=== PATIENT | female | born 1940 | race Two or more races ===

== ENCOUNTER 2016-07-04 08:33 | Day surgery (SDC) | payer MEDICARE ==
[2016-07-02 14:43] VITALS: BMI 39.6
--- NOTE | 2016-07-04 00:26 | P.GSHP ---
History of Present Illness H&P Date: 07/03/16 CHIEF COMPLAINT: Cholecystitis and right lower quadrant pain. HISTORY OF PRESENT ILLNESS: The patient is a 76-year-old female who presents with history of symptomatic gallstones including right lower quadrant abdominal pain. She underwent diagnostic studies for her gallbladder. She also reports history of chronic right lower quadrant pain. She has a family history of chronic appendicitis and appendiceal cancer. Now she presents for surgical intervention. PAST MEDICAL HISTORY: Please see list PAST SURGICAL HISTORY: Please see list MEDICATIONS: Please see list ALLERGIES: Denies. SOCIAL HISTORY: No illicit drug use or recent tobacco use FAMILY HISTORY: Pertinent for gallbladder disease REVIEW OF ORGAN SYSTEMS: CONSTITUTIONAL: No reports of fevers or chills. HEENT: Denies any troubles with the vision or hearing. Has history of tooth abscess, ENDOCRINE: Has diabetes. RESPIRATORY: No recent pneumonias. CARDIOVASCULAR: Denies chest pain or palpitations GI: No blood in stools or constipation. MUSCULOSKELETAL: Has occasional joint pain including back pain. NEURO: No seizure disorders or headaches. No recent stroke. PSYCH: No depression or suicidal ideation. HEMATOLOGIC: No personal or family history of DVTs or pulmonary emboli. PHYSICAL EXAM: VITAL SIGNS: Afebrile vital signs stable GENERAL: Well-developed pleasant in no acute distress. HEENT: No scleral icterus. Extraocular movements grossly intact. Moist buccal mucosa. NECK: Supple without lymphadenopathy. CHEST: Unlabored respirations. Equal bilateral excursions. CARDIOVASCULAR: Regular rate regular rhythm rhythm. Distal 2+ pulses. ABDOMEN: Soft, nondistended. Tender along the epigastrium and right upper quadrant. MUSCULOSKELETAL: No clubbing, cyanosis, or edema. NEURO: Cranial nerves II to XII within normal limits. No focal or lateralizing signs. PSYCH: Alert and oriented to person, place and time. ASSESSMENT: 1. Right lower quadrant pain. 2. Symptomatic gallstones. PLAN: 1. Will need a laparoscopic cholecystectomy possible open including appendectomy. Benefits and risks were described. 2. Heparin for DVT prophylaxis 5000 units. 3. Antibiotic prophylaxis. Past Medical History Past Medical History: Cancer, Diabetes Mellitus, Hearing Disorder / Deafness, Hyperlipidemia, Hypertension, Osteoarthritis (OA) Additional Past Medical History / Comment(s): UTERINE, KIDNEY, RT BREAST CA. TINNITUS NATTY. GALLSTONES. OVERACTIVE BLADDER. <DO NOT USE RIGHT ARM> History of Any Multi-Drug Resistant Organisms: None Reported Past Surgical History: Breast Surgery, Hysterectomy Additional Past Surgical History / Comment(s): VARICOSE VEIN LASERED. EXC 1/2 RT KIDNEY. RT BREAST MASTECTOMY, W/ LYMPH NODE DISSECTION. COLONOSCOPY . Past Anesthesia/Blood Transfusion Reactions: No Reported Reaction Additional Past Anesthesia/Blood Transfusion Reaction / Comment(s): UNABLE TO USE RIGHT ARM. VERY HARD IV START. Past Psychological History: No Psychological Hx Reported Smoking Status: Never smoker Past Alcohol Use History: None Reported Past Drug Use History: None Reported - Past Family History Son(s) Family Medical History: Deep Vein Thrombosis (DVT) Medications and Allergies Home Medications Medication Instructions Recorded Confirmed Type Aspirin 81 mg PO DAILY 07/02/16 07/02/16 History Cholecalciferol [Vitamin D3] 1,000 unit PO BID 07/02/16 07/02/16 History Lisinopril [Zestril] 20 mg PO BID 07/02/16 07/02/16 History glipiZIDE [Glucotrol] 10 mg PO AC-BID 07/02/16 07/02/16 History metFORMIN HCL [Glucophage] 500 mg PO BID 07/02/16 07/02/16 History Allergies Allergy/AdvReac Type Severity Reaction Status Date / Time Iodinated Contrast Media - Allergy Anaphylaxis Verified 07/02/16 14:14 Oral and
[~2016-07-04 08:33] MED LIST: DEXAMETHASONE SOD PHOSPHATE 10 MG/ML 1 ML VIAL IV ONE; LACTATED RINGERS 1,000 ML IV SCH; MIDAZOLAM 2 MG/2 ML VIAL IV PRN; ONDANSETRON 4 MG/2 ML VIAL IVP ONE; SCOPOLAMINE 1.5MG/72HR PATCH TRANSDERM ONE; ceFAZolin 2 GM in SODIUM CHLORIDE 0.9% 100 ML IVPB ONE; metroNIDAZOLE-NS PMX 500 MG in SALINE 1 100ML.BAG IVPB ONE
[2016-07-04] MEDS ORDERED: LIDOCAINE 1% 20 ML VIAL (10MG/ML) FOR IV START INTRADERMA ONE (09:36)
[2016-07-04 09:47] LABS: Glucose,Whole Blood 116 mg/dL (75-99)
[2016-07-04] MEDS ORDERED: HEPARIN SODIUM,PORCINE 5,000 UNIT/ML 1 ML VIAL SQ ONE (09:52)
[2016-07-04 09:56] LABS: Basophils # (A) 0.1 k/uL (0-0.2); Basophils % (A) 1 %; CHCM 33.6; Eosinophils # (A) 0.4 k/uL (0-0.7); Eosinophils % (A) 4 %; HCT 46.2 % (34.0-46.0); HDW 2.36; HGB 15.2 gm/dL (11.4-16.0); Luc # (Auto) 0.16; Luc % (Auto) 2; Lymphocytes # (A) 2.3 k/uL (1.0-4.8); Lymphocytes % (A) 25 %; MCH 30.4 pg (25.0-35.0); MCHC 32.8 g/dL (31.0-37.0); MCV 92.5 fL (80.0-100.0); Mean Platelet Volume 8.1; Monocytes # (A) 0.5 k/uL (0-1.0); Monocytes % (A) 5 %; Neutrophils % (A) 64 %; RDW 13.1 % (11.5-15.5); WBC 9.5 k/uL (3.8-10.6); WBC (Perox) 9.54
[2016-07-04 10:10] LABS: ALT 29 U/L (9-52); AST 21 U/L (14-36); Alkaline Phosphatase 78 U/L (38-126); Anion Gap 12 mmol/L; Blood Urea Nitrogen 13 mg/dL (7-17); Calcium 9.6 mg/dL (8.4-10.2); Carbon Dioxide 26 mmol/L (22-30); Chloride 105 mmol/L (98-107); Glucose 123 mg/dL (74-99); Non-African American GFR(MDRD) >60 (>60 ml/min/1.73 sqM); Potassium 4.7 mmol/L (3.5-5.1); Sodium 143 mmol/L (137-145); Total Bilirubin 0.6 mg/dL (0.2-1.3); Total Protein 7.4 g/dL (6.3-8.2)
[2016-07-04] MEDS ORDERED: BUPIVACAIN-EPI 0.25%-1:200,000 30 ML VIAL SQ ONE ×2 (11:13)
[2016-07-04] MEDS ORDERED: fentaNYL (PF) 50 MCG/ML 2 ML AMP ONE (11:15)
[2016-07-04] MEDS ORDERED: ROCURONIUM BROMIDE 10 MG/ML 10 ML VIAL IV ONE (11:15)
[2016-07-04] MEDS ORDERED: NEOSTIGMINE 1 MG/ML 10 ML VIAL ONE (11:15)
[2016-07-04] MEDS ORDERED: LABETALOL 5 MG/ML VIAL MDV ONE (11:15)
[2016-07-04] MEDS ORDERED: METOPROLOL TARTRATE 5 MG/5 ML VIAL IVP ONE (11:15)
[2016-07-04] MEDS ORDERED: SODIUM CHLORIDE 0.9% 50 ML with ceFAZolin 2,000 MG IV ONE ×2 (11:15)
[2016-07-04] MEDS ORDERED: LIDOCAINE 1% INJ 10MG/ML (20 ML MDV) ONE (11:15)
[2016-07-04] MEDS ORDERED: ACETAMINOPHEN IV (For NPO) 1,000 MG/100 ML VIAL ONE (11:15)
[2016-07-04] MEDS ORDERED: MIDAZOLAM 2 MG/2 ML VIAL ONE (11:15)
[2016-07-04] MEDS ORDERED: PROPOFOL 10 MG/ML 20 ML VIAL IV ONE (11:15)
[2016-07-04] MEDS ORDERED: GLYCOPYRROLATE 0.2 MG/ML 2 ML VIAL ONE (11:15)
[2016-07-04] MEDS ORDERED: SUCCINYLCHOLINE CHLORIDE 100 MG/5 ML SYR IV ONE (11:15)
--- NOTE | 2016-07-04 12:31 | P.PCN ---
Date of Procedure: 07/04/16 Preoperative Diagnosis: Cholelithiasis, right lower quadrant abdominal pain, history of multiple abdominal operations including right nephrectomy Postoperative Diagnosis: Same, intra-abdominal. Toenail adhesions along right lower quadrant, periumbilical ventral hernia reducible 4 cm, absent appendix Procedure(s) Performed: Laparoscopic lysis of adhesions over 30 minutes, laparoscopic cholecystectomy Anesthesia: GETA, local (60) Surgeon: Felisha Barriga Estimated Blood Loss (ml): 5 Pathology: other (Gallbladder) Condition: stable Disposition: floor Operative Findings: Moderate adhesions along the right lower quadrant consistent with patient's pain , adhesions along the base of the cecum and terminal ileum without appendix consistent with prior appendectomy, ovary along the right identified, gallbladder with gallstones and thickened gallbladder wall, unremarkable liver surface, reducible ventral hernia periumbilical 4 cm Plan - Discharge Summary Discharge Medication List Aspirin 81 mg PO DAILY 07/02/16 [History] Cholecalciferol [Vitamin D3] 1,000 unit PO BID 07/02/16 [History] Lisinopril [Zestril] 20 mg PO BID 07/02/16 [History] glipiZIDE [Glucotrol] 10 mg PO AC-BID 07/02/16 [History] metFORMIN HCL [Glucophage] 500 mg PO BID 07/02/16 [History]
[2016-07-04] MEDS ORDERED: PROMETHAZINE 25 MG TAB PO PRN (12:37)
[2016-07-04] MEDS ORDERED: NALOXONE 0.4 MG/ML 1 ML VIAL IV PRN ×2 (12:37→15:45)
[2016-07-04 13:16] LABS: Glucose,Whole Blood 197 mg/dL (75-99)
[2016-07-04] MEDS: HYDROmorphone 1 MG/ML 1 ML SYRINGE IVP PRN ×2 (13:22→14:25)
[2016-07-04] MEDS ORDERED: ONDANSETRON 4 MG/2 ML VIAL IVP PRN (15:45)
--- NOTE | 2016-07-04 15:48 | P.PN ---
Progress Note - Text Patient has dizziness and uncontrolled hypertension. Overnight observation is advised.
[2016-07-04] MEDS ORDERED: LACTATED RINGERS 1,000 ML IV ONE (15:58)
[2016-07-04 17:33] LABS: Hemoglobin A1C 6.2 % (4.2-6.1)
[2016-07-04] MEDS: SODIUM CHLORIDE 0.9% 1,000 ML IV SCH (18:16)
[2016-07-04] MEDS: AMPICILLIN-SULBACTAM 3 GM in SODIUM CHLORIDE 0.9% 100 ML IVPB SCH ×2 (18:16→23:29)
[2016-07-04] MEDS: INSULIN LISPRO (humaLOG) 300 UNIT/3 ML VIAL SQ SCH (18:36)
[2016-07-04 18:41] LABS: Glucose,Whole Blood 177 mg/dL (75-99)
[2016-07-04] MEDS: HYDROcodone/APAP 5-325MG 1 EACH TAB PO PRN ×2 (19:26→23:34)
[2016-07-04] MEDS: glipiZIDE 10 MG TAB PO SCH ×3 (20:24→21:21)
[2016-07-04 20:47] LABS: Glucose,Whole Blood 180 mg/dL (75-99)
[2016-07-04] MEDS: metFORMIN 500 MG TAB PO SCH (21:20)
[2016-07-04] MEDS: LISINOPRIL 20 MG TAB PO SCH (21:50)
[2016-07-04] MEDS: CHOLECALCIFEROL 1,000 UNIT TAB PO SCH (21:50)
[2016-07-05] MEDS: INSULIN LISPRO (humaLOG) 300 UNIT/3 ML VIAL SQ SCH ×2 (00:22→06:24)
[2016-07-05 00:38] LABS: Glucose,Whole Blood 148 mg/dL (75-99)
[2016-07-05] MEDS: HYDROcodone/APAP 5-325MG 1 EACH TAB PO PRN (05:29)
[2016-07-05 06:24] LABS: Glucose,Whole Blood 86 mg/dL (75-99)
[2016-07-05 08:51] VITALS: BP 152/80; PULSE 66; RESP 16; TEMP 98.2
[2016-07-05] MEDS: metFORMIN 500 MG TAB PO SCH (08:53)
[2016-07-05] MEDS: SODIUM CHLORIDE 0.9% 1,000 ML IV SCH (08:53)
[2016-07-05] MEDS: LISINOPRIL 20 MG TAB PO SCH (08:53)
[2016-07-05] MEDS: glipiZIDE 10 MG TAB PO SCH (08:53)
[2016-07-05] MEDS: CHOLECALCIFEROL 1,000 UNIT TAB PO SCH (08:53)
[2016-07-05] MEDS: AMPICILLIN-SULBACTAM 3 GM in SODIUM CHLORIDE 0.9% 100 ML IVPB SCH (08:56)
[2016-07-05] MEDS ORDERED: ASPIRIN 81 MG CHEW PO SCH (09:00)
--- NOTE | 2016-07-05 10:12 | P.DS ---
Providers Date of admission: 07/04/2016 Expected date of discharge: 07/05/16 Attending physician: Felisha Barriga Primary care physician: Latasha Durham - Discharge Diagnosis(es) (1) Gallstones and inflammation of gallbladder without obstruction Current Visit: Yes Status: Acute (2) Peritoneal adhesions Current Visit: Yes Status: Acute (3) Right lower quadrant pain Current Visit: Yes Status: Acute (4) Diabetes type 2, controlled Current Visit: Yes Status: Acute (5) Difficult ventilator weaning Current Visit: Yes Status: Acute (6) Uncontrolled hypertension Current Visit: Yes Status: Acute (7) Oxygen desaturation Current Visit: Yes Status: Acute Hospital Course: The patient is status post laparoscopic cholecystectomy. She had difficulty with arousal postoperatively. Additionally her blood pressure was uncontrolled. She was admitted as a result of her difficulty of awakening after anesthesia as well as uncontrolled hypertension. Additionally for her oxygen desaturation, she was placed in the Center spirometer. She was resumed on her home medications. This morning, she feels more of herself. She tolerated diet. Blood sugars immediately after breakfast were 133. I reviewed with her blood sugar glucose monitoring including avoiding her medications in the morning if her blood sugars are under 150. She reports having hypoglycemic events at home with blood sugars in the 60s and 80s. Separately she reports discomfort along the left upper quadrant as to be expected as she had a over a 2 cm gallstone removed. Will need diabetic education and follow up with her primary care provider regarding adjustment of her medications. Separately, she reports having a tooth abscess for which additional antibiotics were given for her tooth abscess. Vital Signs Temp 98.2 F 07/05/16 07:00 Pulse 66 07/05/16 08:00 Resp 16 07/05/16 08:00 BP 152/80 07/05/16 07:00 Pulse Ox 93 L 07/05/16 07:00 Intake & Output 07/04/16 07/05/16 07/05/16 18:59 06:59 18:59 Intake Total 1050 600 Output Total 355 350 350 Balance 695 250 -350 Weight 95.254 kg 95.254 kg 95.254 kg Intake: IV 1050 600 Sodium Chloride 0.9% 1, 600 000 ml @ 75 mls/hr IV . [id number] [facility] Rx#:[id number] Output: Urine 350 350 350 Estimated Blood Loss 5 Other: Voiding Method Bedside Commode Bedside Commode # Voids 1 1 GENERAL: Well developed and in no acute distress. Pleasant. HEENT: No sclera icterus. Extraocular movements grossly intact. Moist buccal mucosa. Head is atraumatic, normocephalic. Hears conversational speech. No nasal drainage. NECK: Supple without lymphadenopathy. No JV distention. CHEST: Non-labored respirations and equal bilateral excursions. CARDIOVASCULAR: Regular rate and rhythm. Palpable 2+ radial pulses. ABDOMEN: Soft, Nondistended. Tenderness along the left upper quadrant post incisional. Laparoscopic sites clean dry and intact. MUSCULOSKELETAL: No clubbing, cyanosis or edema. NEUROLOGIC: No focal or lateralizing signs. PSYCH: Appropriate affect. Alert and oriented to person, place and time. Pertinent Studies: None Procedures: Laparoscopic cholecystectomy. Laparoscopic lysis of adhesions right lower quadrant for right lower quadrant abdominal pain. Patient Condition at Discharge: Fair Plan - Discharge Summary New Discharge Prescriptions: Amoxicillin/Potassium Clav [Augmentin 500-125 Tablet] 1 tab PO BID #10 tab Hydrocodone/Acetaminophen [Altheimer 5-325] 1 - 2 each PO Q6HR PRN #30 tab PRN Reason: Pain Discharge Medication List Aspirin 81 mg PO DAILY 07/02/16 [History] Cholecalciferol [Vitamin D3] 1,000 unit PO BID 07/02/16 [History] Lisinopril [Zestril] 20 mg PO BID 07/02/16 [History] glipiZIDE [Glucotrol] 10 mg PO AC-BID 07/02/16 [History] metFORMIN HCL [Glucophage] 500 mg PO BID 07/02/16 [History] Amoxicillin/Potassium Clav [Augmentin 500-125 Tablet] 1 tab PO BID #10 tab 07/04 [Rx] Hydrocodone/Acetaminophen [Altheimer 5-325] 1 - 2 each PO Q6HR PRN #30 tab 07/04/16 [Rx] Follow up Appointment(s)/Referral(s): Felisha Barriga MD [STAFF PHYSICIAN] - 07/08/16 3:40 pm (AT [facility] IN [place]. Appointment for July 31 instead.) Patient Instructions/Handouts: *Surgery [facility] - (Anesthesia) Discharge Instructions Outpatient Surgery, Gallstones (DC), Laparoscopic Cholecystectomy ( DC) Activity/Diet/Wound Care/Special Instructions: No lifting over 4 lbs in 2 weeks. Fat free diet for 1 week. Discharge Disposition: HOME SELF-CARE
[2016-07-05 10:21] LABS: Glucose,Whole Blood 133 mg/dL (75-99)
== END 2016-07-05 10:55 | disposition home or self-care (01) ==
LOC: OR 08:33 → 5MS5E 16:26 → OR 07-05 10:55
PROVIDERS: ATTEND Surgery Plastic and Reconstructive Surgery
DX: K80.10 Calculus of gallbladder with chronic cholecystitis without obstruction (principal); K66.0 Peritoneal adhesions (postprocedural) (postinfection); R59.9 Enlarged lymph nodes, unspecified; R94.31 Abnormal electrocardiogram [ECG] [EKG]; R42 Dizziness and giddiness; I10 Essential (primary) hypertension; E11.9 Type 2 diabetes mellitus without complications; E78.5 Hyperlipidemia, unspecified; M19.90 Unspecified osteoarthritis, unspecified site; H91.90 Unspecified hearing loss, unspecified ear; Z85.3 Personal history of malignant neoplasm of breast; Z79.84 Long term (current) use of oral hypoglycemic drugs; Z79.82 Long term (current) use of aspirin; Z79.899 Other long term (current) drug therapy; Z91.041 Radiographic dye allergy status
CPT/HCPCS: 93005; 88304; 80053; 83036; 85025; 47562; J2250; J1644; J1100; J2710; J2405; J0690; J2001; J3010; J1170; J0295 ×2; J0131; J0330; J2704